=== PATIENT | male | born 1970 | race Caucasian/White ===

== ENCOUNTER 2021-07-01 00:24 | Day surgery (SDC) | payer BC, SELFPAY ==
[2021-06-14 15:05] VITALS: BMI 34.7
--- NOTE | 2021-07-01 08:14 | P.PNAN_ITS ---
Anes - Initial Pre Proc Eval Procedure: Operation Date: 07/01/21 09:30 Proposed Procedures p Screening Colonoscopy - Luis Enrique Sue MD Date/Time: 07/01/21 08:14 Surgeon: Luis Enrique Sue MD Pre Op Diagnosis: neoplasm screening Patient Data Age: 50 Gender: M Height: 1.8 m Weight: 113 kg Allergies Allergy/AdvReac Type Severity Reaction Status Date / Time No Known Allergies Allergy Verified 07/01/21 08:49 Home Medications Medication Instructions Recorded Confirmed Type rosuvastatin 5 mg tablet 5 mg PO DAILY #90 tablet 01/08/21 07/01/21 Rx Patient hx anesthesia problems: none Family hx anesthesia problems: none Results Review: All pre-operative results and documents have been reviewed as part of the pre-operative evaluation. [facility] Past Medical History Medical History (Updated 07/01/21 @ 09:27 by Luis Enrique Sue MD) Calculus of kidney Carpal tunnel syndrome, bilateral upper limbs Colon cancer screening Fungal infection of toenail Hyperlipidemia Impaired fasting glucose Pure hypercholesterolemia, unspecified Family History Family History (System 05/23/19 @ 09:25 by Marci Cruz) Father Family history of heart disease in male family member before age 55 Mother Diabetes mellitus Sibling Family history of malignant neoplasm of breast in first degree relative Social History Social History (Updated 01/28/21 @ 15:44 by Laura Epstein MA) Smoking status: Never smoker Second hand tobacco smoke exposure: No Alcohol intake: current Drinks per week: 4 Substance use: never Substance use type: does not use Living arrangements: with family Gender identity (if verbalized by the patient): Male Sexual Orientation (if Verbalized by the Patient): Straight or Heterosexual Spiritual care concerns: No Anes - Eval Final PreProcedure Day of Procedure 07/01/21 08:14 Patient weight: obese Heart: regular rate and rhythm Lungs: clear to auscultation and normal air movement Airway: Mallampati scale class II Neurological: alert and oriented Last oral intake: >/= 8 hours ASA classification: II Emergent: no Anesthetic plan: proceed Anesthesia type and monitoring: general GIVS and standard monitoring Results Review: All pre-operative results and documents have been reviewed as part of the pre-operative evaluation. Informed Consent: The patient's anesthetic plan and its attendant risks and benefits were discussed with the patient/family/POA. Questions were solicited and answers provided to the satisfaction of the patient/family/POA.
[2021-07-01 08:42] VITALS: BP 147/77; PULSE 79; RESP 18; TEMP 35.9; O2SAT 98; BMI 35.2
[2021-07-01] MEDS: LACTATED RINGERS 1,000 ML 150 ML IV CONT (08:56)
--- NOTE | 2021-07-01 09:27 | PM.HPGS ---
History of Present Illness History of Present Illness Consent: Risks, benefits, and alternatives have been discussed and questions answered. Patient agrees to proceed with procedure. Chief complaint: neoplasm screening Narrative: Anup Ruth is a 50 year old male here for first screening colonoscopy Review of Systems Constitutional: Constitutional: Denies headache(s) and Denies weakness Eyes: Eyes: Denies blurry vision ENT: Reports Normal hearing present, Denies headache(s) and Denies neck pain Cardiovascular: Cardiovascular: Denies chest pain and Denies dyspnea Respiratory: Respiratory: Denies dyspnea Gastrointestinal: Gastrointestinal: Reports no additional gastrointestinal complaints Genitourinary: Genitourinary: Denies dysuria Musculoskeletal: Musculoskeletal: Denies neck pain Integumentary/Breasts: Skin/Breast: Denies dry skin Neurologic: Reports Normal hearing present, Denies headache(s) and Denies weakness Psychiatric: Psychiatric: Denies anxiety Endocrine: Endocrine: Denies change in body appearance Hematologic/Lymphatic: Hematologic/Lymphatic: Denies easy bleeding Allergic/Immunologic: Allergic/Immunologic: Denies urticaria PMFSH Past Medical History Medical History (Updated 07/01/21 @ 09:27 by Luis Enrique Sue MD) Calculus of kidney Carpal tunnel syndrome, bilateral upper limbs Colon cancer screening Fungal infection of toenail Hyperlipidemia Impaired fasting glucose Pure hypercholesterolemia, unspecified Family History Family History (System 05/23/19 @ 09:25 by Marci Cruz) Father Family history of heart disease in male family member before age 55 Mother Diabetes mellitus Sibling Family history of malignant neoplasm of breast in first degree relative Social History Social History (Updated 01/28/21 @ 15:44 by Laura Epstein MA) Smoking status: Never smoker Second hand tobacco smoke exposure: No Alcohol intake: current Drinks per week: 4 Substance use: never Substance use type: does not use Living arrangements: with family Gender identity (if verbalized by the patient): Male Sexual Orientation (if Verbalized by the Patient): Straight or Heterosexual Spiritual care concerns: No Meds Home Medications and Allergies Home Medications Medication Instructions Recorded Confirmed Type rosuvastatin 5 mg tablet 5 mg PO DAILY #90 tablet 01/08/21 07/01/21 Rx Allergies Allergy/AdvReac Type Severity Reaction Status Date / Time No Known Allergies Allergy Verified 07/01/21 08:49 Vital Signs Vital Signs - 24 hr 07/01/21 08:42 Temperature 96.7 F L Pulse Rate 79 Respiratory Rate 18 Blood Pressure 147/77 H Pulse Oximetry 98 Exam Const: General: comfortable and no acute distress HENMT: General nose exam: Normal nares present Eyes: General: appearance normal, both eyes and all related structures Neck: Neck: no JVD Resp: Auscultation: clear to auscultation bilaterally Cardio: Rate: regular rate Rhythm: regular rhythm GI: Inspection: non-distended GI Palp: Yes Soft to palpation Skin: General skin exam: normal color Neuro: General: gait normal Speech: normal speech Extrem: General: normal to inspection Psych: Mental Status: mental status grossly normal Assessment and Plan Assessment and plan (1) Colon cancer screening: Code(s): Z12.11 - Encounter for screening for malignant neoplasm of colon Status: Acute Assessment and Plan: colonoscopy
[2021-07-01 09:47] VITALS: BP 108/68; PULSE 68; RESP 21; O2SAT 100
[2021-07-01 09:57] VITALS: BP 122/86; PULSE 83; RESP 14; O2SAT 100
[2021-07-01 10:07] VITALS: BP 111/77; PULSE 69; RESP 15; O2SAT 99
== END 2021-07-01 10:13 | disposition home or self-care (01) ==
PROVIDERS: PCP Family Medicine; Visit Provider Internal Medicine Gastroenterology
PROC: 0DJD8ZZ Inspection of Lower Intestinal Tract, Via Natural or Artificial Opening Endoscopic (ICD-10-PCS; CPT 45378; principal; 2021-07-01 09:30)
DX: Z12.11 Encounter for screening for malignant neoplasm of colon (principal); E78.5 Hyperlipidemia, unspecified; E78.00 Pure hypercholesterolemia, unspecified; R73.01 Impaired fasting glucose; D12.0 Benign neoplasm of cecum
CPT/HCPCS: 45385; 88305; J2704; J7120